=== PATIENT | female | born 1990 | race Caucasian/White ===

== ENCOUNTER 2018-11-05 15:52 | Emergency (ER) | payer SELFPAY ==
[2018-11-05 15:54] VITALS: BP 164/92; PULSE 88; RESP 19; TEMP 36.7; O2SAT 97; BMI 37.8
--- NOTE | 2018-11-05 16:30 | US_ITS ---
STUDY: ABDOMINAL ULTRASOUND - RIGHT UPPER QUADRANT REASON FOR VISIT: Female, 28 years old. Right upper quadrant pain with nausea and vomiting TECHNIQUE: Ultrasound evaluation of the right upper quadrant was performed with real-time and static mahan-scale imaging. TECHNICAL QUALITY: Adequate. COMPARISON: None. FINDINGS: Liver: The liver measures 19.9 cm. There is normal echogenicity of the liver. The bile ducts are within normal limits. There is hepatic color flow. The direction of portal flow is hepatopetal. There is no demonstrated mass lesion. Gallbladder: Normal distended gallbladder. The gallbladder wall measures 2 mm. There is a negative sonographic Olivarez's sign. There is no pericholecystic fluid. There are no gallstones. Common Bile Duct (C.B.D.): The common bile duct measures 4 mm. Pancreas: Normal size of the head, body and tail of the pancreas. There is normal echogenicity of the pancreas. There is no demonstrated pancreatic mass or cyst. Right Kidney: Normal size of the right kidney. The right kidney measures 12.1 cm. Normal renal cortex. The right cortex measures 1.9 cm. There is no demonstrated renal mass or cyst. There is no right hydronephrosis. US/Gallbladder IMPRESSION: Normal right upper quadrant ultrasound examination. Electronically Signed: Emmanuel Benson DO at 17:32 EST Tel , Service support ,
[2018-11-05 16:33] LABS: Bacteria 0 SEEN /hpf (None Seen); Mucous, Urine 0 SEEN /hpf (<or=2+); Red Blood Cells-Urine 0 SEEN /hpf (0-5)
--- NOTE | 2018-11-05 16:45 | ED.VISSUMM ---
- ER Visit Summary Date of Service: 11/05/18 Chief Complaint:Abdominal pain History of Present Illness: The patient is a 28 F presents to the emergency department with abdominal pain. The patient states that about a week ago, she had nausea, vomiting, diarrhea. She had a sharp stabbing sensation in her right upper quadrant. It went away. She states this morning, before going to work, she ate an egg sandwich. She states about 2 hours later, she had a sharp stabbing pain in the right upper quadrant with radiation into her back. She was mildly nauseated. She denies any diarrhea. She denies any fevers or chills. She is never had pain like this before. She denies any history of prior abdominal surgery. Physical Examination: Vital signs reviewed General: Well-nourished, well-developed Head: Normocephalic, atraumatic Eyes: Pupils equal and reactive, extraocular muscles intact Neck, supple, no lymphadenopathy Heart: Regular rate and rhythm Respiratory: No distress, clear bilaterally Abdomen: Soft, nontender, nondistended, no peritoneal signs Back: Nontender Extremities: Nontender, no edema, no cords Skin: Normal color no rash Neuro: Alert and oriented, no focal or lateralizing deficits Test Results: [] Emergency Department Course and Treatment: Clinically, the patient's symptoms do seem most consistent with biliary colic. She does not have a positive Olivarez sign. IV was established. She was given Toradol and Zofran. She had total resolution of her symptoms. Screening labs including LFTs and lipase are unremarkable. The patient is not . She underwent ultrasound which was also normal. Not sure if this is biliary dyskinesia or other symptoms. I do not suspect a dangerous process. I do feel the patient is safe for discharge. She was given outpatient surgical follow-up. She was counseled on foods to avoid and reasons to return. Treatment Plan: [] Disposition: Discharge Impression: 1. Biliary colic This note was generated with [employer] dictation software. It may contain incorrect words, spelling, and punctuation that were not noted in review of the chart prior to signing ED Disposition - Plan for ED Patient: Instructions: ED Abdominal Pain Gallstone Poss Prescriptions: Ondansetron [Zofran Odt] 4 mg PO Q8H PRN PRN #10 tab PRN Reason: Nausea Dicyclomine HCl [Bentyl] 20 mg PO TIDAC #20 cap Referrals: Bethany Alston MD [STAFF PHYSICIAN] -
[2018-11-05 16:46] LABS: Color, Urine Yellow (Yellow); Glucose, Dipstick Normal (Normal); Ketone-Dipstick Negative (Negative); Leukocyte Esterase-Dipstick Negative /ul (Negative); Nitrite-Dipstick Negative (Negative); Occult Blood-Urine Negative /ul (Negative); Protein-Dipstick Negative (Negative); Urine Bilirubin Dipstick Negative (Negative); Urine Clarity Clear (Clear); Urine Urobilinogen Normal (Normal)
[2018-11-05 16:48] LABS: Internal QC Validated? YES +Cl - CLEAR BKGD; Pregnancy, Urine Negative Negative
[2018-11-05] MEDS: Ondansetron 4 MG/2 ML Vial IV (16:53)
[2018-11-05] MEDS: 0.9% Normal Saline 1,000 ML 1000 ML IV (16:53)
[2018-11-05] MEDS: Ketorolac 30 MG/ML Syringe IV (16:53)
[2018-11-05 17:00] LABS: Absolute Lymphocyte Count 2.11 X10^3/ul (0.83-4.51); Absolute Neutrophil Count 5.2 X10^3/uL (2.0-7.7); Basophil# 0.02 X10^3/uL; Basophil% 0.2 % (0-1); Eosinophil# 0.19 X10^3/uL; Eosinophils% 2.3 % (0-5); Hematocrit 38.4 % (37-47); Hemoglobin 12.8 g/dl (12.0-15.0); Lymphocyte # 2.11 X10^3/ul (4.0); Mean Corp Hgb Conc 33.3 g/gl (32-36); Mean Platelet Vol. 9.1 fl (6.2-12.0); Monocyte# 0.62 X10^3/uL; Monocyte% 7.6 % (0-10); Neutrophil # 5.15 X10^3/uL (2.7-7.7); Neutrophil % 63.7 % (47-70); Platelet Count 264 K/mm3 (150-450); RBC Distribution Width CV 13.5 % (11.6-14.6); RBC Distribution Width SD 38.5 fl (35.1-43.9); Red Blood Count 4.74 M/mm3 (4.2-5.4); White Blood Count 8.1 K/mm3 (4.4-11.0)
[2018-11-05 17:02] LABS: Squamous Epithelial Cells - UA 0-5 SEEN /hpf (5-10); White Blood Cells 0-5 SEEN /hpf (0-5)
[2018-11-05 17:18] LABS: POSITIVE COUNT NO; POSITIVE DIFFERENTIAL NO; POSITIVE MORPHOLOGY NO
[2018-11-05 17:19] LABS: AST(SGOT) 26 U/L (15-37); Alanine Aminotransfer ALT/SGPT 42 U/L (13-56); Alkaline Phosphatase 90 U/L (45-117); Anion Gap 8 (5-15); BUN 13 mg/dL (7-18); BUN/Creat Ratio 17.5 RATIO (10-20); Bilirubin, Direct 0.17 mg/dL (0.00-0.30); Calcium,Total 8.9 mg/dL (8.5-10.1); Chloride 106 mmol/L (98-107); Creatinine, Serum 0.74 mg/dL (0.55-1.02); EST Glomerular Filtration Rate 100 mL/min (>60); Est Glom Filt Rate - Afr Amer 121 mL/min (>60); Estimated Creatinine Clearance 116.21 ml/min; Globulin 3.3 g/dL (2.2-4.2); Glucose 89 mg/dL (74-106); Lipase 66 U/L (73-393); Potassium 3.8 mmol/L (3.5-5.1); Protein, Total 7.3 g/dL (6.4-8.2); Sodium Level 139 mmol/L (136-145)
[2018-11-05 17:48] VITALS: BP 131/84; PULSE 85; RESP 15; O2SAT 94
== END 2018-11-05 17:49 | disposition home or self-care (01) ==
LOC: ED 17:41
PROVIDERS: Emergency Provider Emergency Medicine; Family Provider Internal Medicine; PCP Internal Medicine
DX: K80.50 Calculus of bile duct without cholangitis or cholecystitis without obstruction (principal); F32.9 Major depressive disorder, single episode, unspecified; Z79.899 Other long term (current) drug therapy
CPT/HCPCS: 76705; 80048; 80076; 81001; 81025; 83690; 85025; 96361; 96374; 96375; 99284; J7030; A4216; J2405

== ENCOUNTER 2024-05-26 15:45 | Outpatient (CLI) | payer MEDICAID, SELFPAY ==
[2024-05-26 16:11] VITALS: BP 124/71; PULSE 80; RESP 16; TEMP 36.4; O2SAT 98
[2024-05-26 16:18] VITALS: BMI 37.9
--- NOTE | 2024-05-27 08:31 | OB.TRI.NOTE ---
HPI - General General Date of Admission: 05/26/24 Date of Service: 05/26/24 HPI Narrative BRIAN FREEMAN, is a 34 F who presents for NST due to BPP 02/26 today. Maternal Data Information Final DALILA: 06/06/24 Gestational age: 38 3/7 PFSH PFSH Home Medications ?Medication ?Instructions ?Recorded ?Last Taken ?Type bupropion HCl 75 mg tablet 75 mg PO BID 11/05/18 Unknown History dicyclomine 10 mg capsule 20 mg (2 x 10 mg) PO TIDAC #20 caps 11/05/18 Unknown Rx ondansetron 4 mg disintegrating 4 mg PO Q8H PRN PRN Nausea #10 tabs 11/05/18 Unknown Rx tablet Allergy/AdvReac Type Severity Reaction Status Date / Time balsalazide Allergy Intermediate Hives Verified 05/26/24 16:17 mesalamine Allergy Intermediate Hives Verified 05/26/24 16:17 Social History Smoking Status: Never smoker History Elective abortions Hx Para 0 Spontaneous abortions Hx # Term Pregnancies Ectopic pregnancies Hx # Pregnancies Multiple births # of living children NST FHR Rate Baby A Baseline: 130 Variability:: Moderate Accelerations:: 15 x 15 Decelerations:: None NST Reactive:: Yes FHR Category:: Category I Uterine Activity:: no regular ctxs Assessment & Plan (1) High risk multigravida in third trimester: PLAN: High risk multigravida, history of DVT, maternal obesity with BMI of 37. BPP of 6 out of 8 today, reports to labor and delivery for nonstress test. Nonstress test is reactive. This makes BPP 8 out of 10 patient to continue kick counts, discharge home and follow-up for antepartum surveillance as scheduled.
== END 2024-05-26 16:40 | disposition home or self-care (01) ==
LOC: WPOUT 15:56 → WP 15:57
PROVIDERS: PCP Internal Medicine; Referring Provider Obstetrics & Gynecology; Visit Provider Obstetrics & Gynecology
DX: O09.899 Supervision of other high risk pregnancies, unspecified trimester (principal); O99.210 Obesity complicating pregnancy, unspecified trimester; Z3A.00 Weeks of gestation of pregnancy not specified
CPT/HCPCS: 59025; 59050; 99221; G0378

== ENCOUNTER 2024-06-02 07:18 | Inpatient (IN) | payer MEDICAID, SELFPAY ==
[2024-06-02] VITALS (70 sets, daily range): BP systolic 107–178; BP diastolic 53–124; PULSE 61–160; RESP 14–18; TEMP 36.5–36.9; O2SAT 90–100; BMI 38.2
[2024-06-02] MEDS: Lactated Ringers 1,000 ML 50 ML IV (07:40)
--- NOTE | 2024-06-02 08:01 | HP.PCM.OB_ITS ---
HPI - General General Date of Admission: 06/02/24 HPI Narrative BRIAN FREEMAN, is a 34 F at 39.3 weeks gestation who presents for scheduled induction of labor for polyhydramnios, obesity, and history of crohn's disease. Maternal Data Information DALILA Calculator Estimated Delivery Date Method Current WG Current Estimate 06/06/24 Manual 39w 3d PFSH PFSH Medical History (Updated 06/02/24 @ 08:39 by Sneha Serrano CNM) History of blood transfusion Home Medications ?Medication ?Instructions ?Recorded ?Last Taken ?Type bupropion HCl 75 mg tablet 75 mg PO BID 11/05/18 Unknown History dicyclomine 10 mg capsule 20 mg (2 x 10 mg) PO TIDAC #20 caps 11/05/18 Unknown Rx ondansetron 4 mg disintegrating 4 mg PO Q8H PRN PRN Nausea #10 tabs 11/05/18 Unknown Rx tablet Allergy/AdvReac Type Severity Reaction Status Date / Time balsalazide Allergy Intermediate Hives Verified 05/26/24 16:17 mesalamine Allergy Intermediate Hives Verified 05/26/24 16:17 Surgical History (Updated 06/02/24 @ 07:46 by Alexa Jones) History of surgery History of surgery Social History Smoking Status: Light Smoker (<10/day) History Elective abortions Hx Para 1 Spontaneous abortions Hx # Term Pregnancies Ectopic pregnancies Hx # Pregnancies Multiple births # of living children NST FHR Rate Baby A Baseline: 140 Variability:: Moderate Accelerations:: 15 x 15 Decelerations:: None NST Reactive:: Yes ROS Eyes Eyes: Denies blurry vision, change in vision or spots in vision ENT HEENT: Denies dizziness or headache(s) Cardiovascular Cardiovascular: Denies abdominal pain, chest pain or dyspnea Respiratory/Chest Respiratory/Chest: Denies cough, dyspnea, shortness of breath at rest or shortness of breath with exertion Gastrointestinal Gastrointestinal: Denies abdominal pain, diarrhea or vomiting Genitourinary Genitourinary: Denies change in urinary stream, difficulty urinating or dysuria Musculoskeletal Musculoskeletal: Reports none Integumentary Integumentary: Denies rash Neurologic Neurologic: Denies dizziness, headache(s), memory loss or weakness Psychiatric Psychiatric: Reports none Vital Signs Vital Signs Vital Signs: 06/02/24 07:32 06/02/24 07:32 06/02/24 07:32 Temperature Temperature Source Temporal Pulse Rate 74 Respiratory Rate Blood Pressure 123/73 H BP Systolic 123 BP Diastolic 73 06/02/24 07:32 06/02/24 07:32 Temperature 97.7 F L Temperature Source Pulse Rate Respiratory Rate 16 Blood Pressure BP Systolic BP Diastolic Weight Weight: 243 lb 13.3 oz Body Mass Index (BMI) 38.2 Physical Exam Const alert, oriented x3 and no apparent distress General Appearance: cooperative Orientation / Consciousness: awake Exam Limitations: no limitations HEENT normocephalic Head and Scalp: normal to inspection Eyes General Eye: normal appearance of both eyes Neck full ROM and no lymphadenopathy Lymph Lymphatic: no lymphadenopathy noted Chest inspection of chest normal Resp normal respiratory effort, normal air movement and clear to auscultation bilate rally Effort and Inspection: able to speak in complete sentences and symmetric chest movement Cardio regular rate and regular rhythm GI normal to inspection, nondistended, normoactive bowel sounds Manual OB Exam: presentation cephalic Back/Spine normal ROM Extremity full ROM and no calf tenderness Skin no rashes or lesions noted General Skin Exam: no breakdown Neuro oriented x3 and CN's II-XII intact bilaterally Psych mental status grossly normal and thought process normal Labs Labs Labs: Blood Type O NEGATIVE Antibody Screen NEGATIVE Hct 31.0 % (37-47) L Hgb 9.9 g/dL (12.0-15.0) L Syphilis Total Ab Pending Rhogam given: Yes GBS negative Assessment & Plan (1) High risk multigravida in third trimester: (2) 39 weeks gestation of : (3) History of DVT (deep vein thrombosis): (4) Obesity affecting , antepartum: (5) Polyhydramnios affecting : (6) Crohn's disease: PLAN: Plan Admit to labor and delivery CE 2/70/-2 Perez bulb placed without difficulty and balloon filled with 30 cc N/S Pitocin 2 mu/min IV running- increase per orders GBS negative Epidural when indicated Anticipate Dr. Peguero notified of admission and is collaborating physician
[2024-06-02 08:02] LABS: Absolute Lymphocyte Count 2.46 X10^3/uL (0.83-4.51); Absolute Neutrophil Count 5.1 X10^3/uL (2.0-7.7); Basophil# 0.04 X10^3/uL; Basophil% 0.5 % (0-1); Eosinophil# 0.12 X10^3/uL; Eosinophils% 1.4 % (0-5); Hemoglobin 9.9 g/dL (12.0-15.0); Lymphocyte # 2.46 X10^3/ul (0.83-4.51); Lymphocyte % 28.9 % (19-41); Mean Corp Hgb Conc 31.9 g/dL (32-36); Mean Corpuscular Hgb 25.8 pg (27.0-32.0); Mean Corpuscular Volume 80.9 fL (81-99); Monocyte# 0.71 X10^3/uL; Monocyte% 8.3 % (0-10); NRBC Flagged by Analyzer 0 % (0-5); Neutrophil % 59.8 % (47-70); Platelet Count 232 K/mm3 (150-450); RBC Distribution Width CV 14.1 % (11.6-14.6); Red Blood Count 3.83 M/mm3 (4.2-5.4); White Blood Count 8.5 K/mm3 (4.4-11.0)
[2024-06-02] MEDS: Oxytocin 15 Units/NS 250ml 15 UNITS/250 ML IV.SOLN 2 UNITS IV (08:02)
[2024-06-02] MEDS: 0.9% Normal Saline Single 100 ML IV.SOLN. INTRA-UTER (08:23)
[2024-06-02 08:53] LABS: Syphilis Antibodies Non-reactive
[2024-06-02] MEDS: Lactated Ringers 1,000 ML 999 ML IV (10:40)
[2024-06-02] MEDS: fentaNYL-bupivacaine (epidural) 100 ML BAG EPIDURAL ×3 (12:07→20:56)
[2024-06-02] MEDS: Lactated Ringers 1,000 ML 200 ML IV ×2 (13:52→18:19)
--- NOTE | 2024-06-02 16:13 | PCM.PN.CNM ---
Subjective Subjective Patient seen at bedside. Comfortable with epidural anesthesia. Objective Data Objective Data Vital Signs: Vital Signs Temp Pulse Resp BP Pulse Ox 98.3 F 71 18 114/64 98 06/02/24 16:05 06/02/24 16:06 06/02/24 16:05 06/02/24 16:06/02/24 12:41 Weight: 243 lb 13.3 oz Body Mass Index (BMI) 38.2 Intake & Output: Intake and Output for Last 24 Hours 05/31/24 06/01/24 06/02/24 23:59 23:59 23:59 Intake Total 1695.64 / 1695.64 Output Total 400 / 400 Balance 1295.64 / 1295.64 Lab / Micro Data 06/02/24 07:40 Labs: Laboratory Results - last 24 hr 06/02/24 07:40: WBC 8.5, RBC 3.83 L, Hgb 9.9 L, Hct 31.0 L, MCV 80.9 L, MCH 25.8 L, MCHC 31.9 L, RDW Std Deviation 41.0, RDW Coeff of Lachelle 14.1, Plt Count 232, MPV 10.0, Immature Gran % (Auto) 1.100 H, Neut % (Auto) 59.8, Lymph % (Auto) 28.9, Ransom % (Auto) 8.3, Eos % (Auto) 1.4, Baso % (Auto) 0.5, Absolute Neuts (auto) 5.1, Absolute Lymphs (auto) 2.46, Nucleated RBC % 0, Syphilis Total Ab Non-reactive, Blood Type O NEGATIVE, Antibody Screen NEGATIVE Assessment & Plan (1) Crohn's disease: (2) Polyhydramnios affecting : (3) Obesity affecting , antepartum: (4) History of DVT (deep vein thrombosis): (5) 39 weeks gestation of : (6) High risk multigravida in third trimester: PLAN: Plan NST reactive, Cat. 1 tracing CE /-2 AROM for copious amount of fluid IUPC and FSE placed without difficulty Pitocin 18 mu /min Continue present management of care Position changes Anticipate
[2024-06-02] MEDS: Ondansetron 4 MG/2 ML Vial IV (18:13)
[2024-06-02] MEDS: Acetaminophen 500 MG Tablet PO (18:13)
[2024-06-02] MEDS: Oxytocin 15 Units/NS 250ml 15 UNITS/250 ML IV.SOLN 999 UNITS IV (22:10)
[2024-06-02] MEDS: Methylergonovine 0.2 MG/ML Ampul IM (22:10)
[2024-06-02] MEDS: miSOPROStol 200 MCG Tablet 1000 MCG RC (22:12)
--- NOTE | 2024-06-02 22:24 | EX.PCM.OBRPT ---
Assessment & Plan (1) Crohn's disease: (2) (spontaneous vaginal delivery): (3) Care and examination of lactating mother: Maternal Data Information DALILA Calculator Estimated Delivery Date Method Current WG Current Estimate 06/06/24 Manual 39w 3d Vaginal Delivery Maternal Presentation Maternal Presentation: Medically Indicated Induction Maternal Presentation: at 39.3 weeks gestation for scheduled induction of labor for polyhydramnios, obesity, history of Crohn's and history of DVT Type of Induction: Pitocin, Perez Bulb and Amniotomy Medical Reason for Induction: Maternal Medical Condition: list: (obesity) Operative Information Date of Procedure: 06/02/24 Pre-Operative Diagnosis: Term gestation Post-Operative Diagnosis: , Live female Surgery / Procedure Performed: Spontaneous Vaginal Delivery Type of Anesthesia: Epidural Drain: Perez to straight drain Estimated Blood Loss: 400 Time of Delivery: 22:02 Findings Description of Procedure: Patient progressed to complete dilation. With good maternal effort, head delivered followed by anterior shoulder and remainder of body without any force, delay or traction. Loose nuchal cord easily reduced. Vigorous female was delivered atraumatically and placed on maternal abdomen. Pitocin IV started for active management of the third stage of labor. Patient having large gushes of blood vaginally. Pitocin IV opened wide. 3 vessel cord clamped and cut after delay and placed immediately skin to skin with patient. Placenta delivered spontaneously and intact. Fundus firming with massage. Methergine IM x 1 dose given. Several large clots removed. Cytotec 1000 mcg FL placed. Fundus firm 2 below U. No further clots or active bleeding noted. After inspection, there were no vaginal or perineal lacerations. Vaginal sweep performed. Fundus is firm and bleeding hemostatic. Patient and infant bonding well at this time. Dr. Peguero notified of delivery. Routine post orders placed. Presentation: Vertex Amniotic Membrane Rupture Type: Artificial Time of Membrane Rupture: 1551 Amniotic Fluid Description: Clear Placental Delivery Description: Spontaneous Placenta Disposition: [facility] Cord Vessel Description: 3 Vessels Cord Entanglement: Around neck x 1, loose Nuchal Cord Compression: Without compression A Gender: Female Delayed Cord Clamping: Yes Post Vaginal Delivery Medications Given After Delivery: IV Pitocin, IM Methergin and - (Cytotec 1000 mcg FL) Episiotomy Description: None Laceration: None Complication Complications: None
[2024-06-02] MEDS: Oxytocin 15 Units/NS 250ml 15 UNITS/250 ML IV.SOLN 83 UNITS IV (22:26)
[2024-06-03] VITALS (8 sets, daily range): BP systolic 112–139; BP diastolic 71–97; PULSE 59–71; RESP 16–17; TEMP 36–36.8; O2SAT 96–98
[2024-06-03] MEDS: Acetaminophen 500 MG Tablet 1000 MG PO ×3 (01:42→22:36)
[2024-06-03] MEDS: Naproxen 500 MG Tablet PO (04:02)
--- NOTE | 2024-06-03 13:07 | PCM.PN.OB ---
Subjective Subjective Doing well per patient and nursing staff. Ambulating and taking PO without difficulty. Voiding and passing flatus. Pain controlled. , services for assistance. Denies headache, visual changes, chest pain, shortness of breath, leg pain or increased bleeding. Lochia normal. Objective Data Objective Data Vital Signs: Vital Signs Temp Pulse Resp BP Pulse Ox O2 Del Method 97.8 F 64 17 112/80 97 Room Air 06/03/24 04:06 06/03/24 04:06 06/03/24 04:06 06/03/24 04:06 06/03/24 04:06 06/03/24 04:06 Oxygen Delivery Method Room Air Weight: 243 lb 13.3 oz Body Mass Index (BMI) 38.2 Intake & Output: Intake and Output for Last 24 Hours 06/01/24 06/02/24 06/03/24 23:59 23:59 23:59 Intake Total 3713.77 / 3713.77 250 / 250 Output Total 1400 / 1400 1200 / 1200 Balance 2313.77 / 2313.77 -950 / -950 Lab / Micro Data 06/02/24 07:40 ROS Constitutional Constitutional: Reports systems reviewed and no addt'l complaints, except as documented; Denies headache(s) Eyes Eyes: Denies acute decrease in peripheral vision, blurry vision or change in vision ENT HEENT: Reports systems reviewed and no addt'l complaints, except as documented Cardiovascular Cardiovascular: Denies chest pain or dizziness Respiratory/Chest Respiratory/Chest: Denies cough, dyspnea, dyspnea on exertion, shortness of breath at rest or shortness of breath with exertion Gastrointestinal Gastrointestinal: Denies abdominal pain, diarrhea, nausea or vomiting Genitourinary Genitourinary: Denies abdominal discomfort Musculoskeletal Musculoskeletal: Denies limited range of motion Integumentary Integumentary: Reports systems reviewed and no addt'l complaints, except as documented Neurologic Neurologic: Reports systems reviewed and no addt'l complaints, except as documented Psychiatric Psychiatric: Reports systems reviewed and no addt'l complaints, except as documented Endocrine Endocrinology: Reports systems reviewed and no addt'l complaints, except as documented Hematologic/Lymphatic Hematologic/Lymphatic: Reports systems reviewed and no addt'l complaints, except as documented Allergic/Immunologic Allergic/Immunologic: Reports systems reviewed and no addt'l complaints, except as documented Physical Exam Const alert and oriented x3 General Appearance: cooperative Orientation / Consciousness: awake, oriented to person, oriented to place and oriented to time Exam Limitations: no limitations HEENT normocephalic Head and Scalp: normal to inspection, normocephalic and atraumatic Face and Sinus: normal facial exam Eyes General Eye: normal appearance of both eyes Neck full ROM Chest Chest: symmetrical chest wall rise Resp normal respiratory effort and normal air movement Auscultation: clear to auscultation bilaterally Cardio regular rate, regular rhythm, S1 normal heart sound, S2 normal heart sound, no murmurs, no rub, no gallops and no clicks GI normal to inspection, nondistended, normoactive bowel sounds and non-tender appearance of the vagina normal Bladder / Kidney Exam: no CVA tenderness Back/Spine normal ROM Extremity normal to inspection and full ROM Skin no rashes or lesions noted Neuro oriented x3, CN's II-XII intact bilaterally and moves all extremities Sensorium / Orientation: awake, alert and oriented to person Motor Exam: clonus absent Deep Tendon Reflexes: Rt Patellar (L4): 2+ and Lt Patellar (L4): 2+ Assessment & Plan (1) Care and examination of lactating mother: (2) (spontaneous vaginal delivery): (3) Crohn's disease: (4) History of DVT (deep vein thrombosis): PLAN: Plan 1) Routine PP care 2) BP mildly elevated, will start Labetalol 100mg PO BID. Follow up in 2-3 days 3) Pain management 4) Lactating mother 5) PP follow up 2 weeks and 6 weeks 6) D/C home
[2024-06-04 02:45] VITALS: BP 118/80; PULSE 62; RESP 16; TEMP 36.2; O2SAT 98
[2024-06-04 08:20] VITALS: BP 131/90; PULSE 70; RESP 16; TEMP 36.1; O2SAT 100
--- NOTE | 2024-06-04 11:04 | DCINST_ITS ---
Discharge Instructions Diet Discharge Diet: No restrictions Activity Discharge Activity: Return to Normal Activity, May Drive, May Shower and May Take a Tub Bath May resume sexual activity in: 6 weeks Weight Bearing Status: Full weight bearing Dressing / Incision Call your doctor if you observe: Fever of 101 or Higher, Inability to urinate, Using more than 1 pad per hour, Shortness of breath, Chest pain, Increased palpitations (irregular heartbeat), Calf discomfort and Uncontrolled pain Follow Up Care Please Follow Up With: Pam Sotomayor CNM When: BP follow in up2-3 days. 2 week virtual visit and 6 week visit Test Results: Test results from this visit will be discussed in further detail at your follow- up appointment, if applicable. Discharge Plan Admission Admit Date/Time: 06/02/24 07:18 Primary Reason for Your Visit: Vaginal Delivery Attending Provider: Sneha Serrano Primary Care Provider: Avril Thao Discharge Orders/Prescriptions Prescriptions: New acetaminophen 500 mg Tablet 1,000 mg PO Q6H PRN PRN (Reason: Pain 1-10 Or Fever) Qty: 0 0RF naproxen 500 mg Tablet 500 mg PO Q8H PRN PRN (Reason: Pain Score 1-10) Qty: 0 0RF labetalol 100 mg tablet 100 mg PO BID Qty: 60 0RF Continued bupropion HCl 75 MG tablet 75 mg PO BID dicyclomine 10 MG capsule 20 mg PO TIDAC Qty: 20 0RF Humira(CF) Pen 40 mg/0.4 mL pen injector kit 40 mg subcut .COMPLEX Rx Instructions: 40 mg subcutaneously every other week; pantoprazole 40 mg tablet,delayed release (DR/EC) 40 mg PO DAILY Discontinued ondansetron 4 MG tablet 4 mg PO Q8H PRN PRN (Reason: Nausea) Qty: 10 0RF Referrals / Follow Up: Avril Thao MD [Primary Care Provider] - Disposition Disposition (needs filled in before D/C Order can be placed): Home, Self Care
[2024-06-04] MEDS: Labetalol 100 MG Tablet PO (11:52)
--- NOTE | 2024-06-07 00:15 | NURSING ---
late entry due to unit acuity . this RN filing delivery record as soon as possible on next shift. delivery record verified with collette CHAO.
== END 2024-06-04 11:54 | disposition home or self-care (01) | DRG 560 ==
PROVIDERS: Admitting Provider Advanced Practice Midwife; PCP Internal Medicine; Referring Provider Advanced Practice Midwife; Visit Provider Advanced Practice Midwife
DX: O99.214 Obesity complicating childbirth (principal); Z37.0 Single live birth; F17.200 Nicotine dependence, unspecified, uncomplicated; K50.90 Crohn's disease, unspecified, without complications; O69.81X0 Labor and delivery complicated by cord around neck, without compression, not applicable or unspecified; O99.62 Diseases of the digestive system complicating childbirth; Z3A.39 39 weeks gestation of pregnancy; O99.334 Smoking (tobacco) complicating childbirth; Z86.718 Personal history of other venous thrombosis and embolism
CPT/HCPCS: 59025; 59050; 85025; 86780; 86850; 86900; 86901; 99221; G0378; J2405